=== PATIENT | male | born 1965 | race Caucasian/White ===

== ENCOUNTER 2018-02-22 17:31 | Emergency (ER) | payer MEDICAID, OTHER ==
[~2018-02-22] VITALS: Ht 180.3 cm; Wt 15.9 kg
[2018-02-22 18:34] LABS: BASOPHILS % (AUTO) 0.4 % (0-1); EOSINOPHILS # (AUTO) 0.2 X10'3 (0-0.9); EOSINOPHILS % (AUTO) 2.2 % (0-6); HEMATOCRIT 30.7 % (42.0-52.0); HEMOGLOBIN 9.6 g/dl (14.0-17.9); LYMPHOCYTES # (AUTO) 1.6 X10'3 (1.1-4.8); LYMPHOCYTES % (AUTO) 18.3 % (21-51); MEAN CORPUSCULAR HEMOGLOBIN 25.3 PG (27.0-31.0); MEAN CORPUSCULAR HGB CONC 31.4 % (33.0-36.5); MEAN CORPUSCULAR VOLUME 80.6 FL (78-98); MONOCYTES # (AUTO) 0.6 X10'3 (0-0.9); MONOCYTES % (AUTO) 6.6 % (2-12); NEUTROPHILS # (AUTO) 6.3 X10'3 (1.8-7.7); NEUTROPHILS % (AUTO) 72.5 % (42-75); PLATELET COUNT 392 X10'3 (140-440); RED BLOOD COUNT 3.81 X10'6 (4.70-6.10); WHITE BLOOD COUNT 8.7 X10'3 (4.5-11.0)
[2018-02-22 18:54] LABS: ALANINE AMINOTRANSFERASE 19 U/L (12-78); ALBUMIN 2.2 G/DL (3.4-5.0); ALBUMIN/GLOBULIN RATIO 0.3 (1.1-1.5); ALKALINE PHOSPHATASE 67 IU/L (46-116); ANION GAP 9 (8-16); ASPARTATE AMINO TRANSFERASE 15 U/L (10-37); BILIRUBIN,TOTAL 0.5 MG/DL (0.1-1.0); BLOOD UREA NITROGEN 10 MG/DL (7-18); BUN/CREATININE RATIO 12.2 (5.4-32.0); CALCIUM 8.1 MG/DL (8.5-10.1); CHLORIDE 100 MMOL/L (99-107); CREATININE 0.82 MG/DL (0.60-1.10); GLUCOSE 152 MG/DL (70-104); LIPASE 69 U/L (73-393); POTASSIUM 3.7 MMOL/L (3.5-5.1); SODIUM 139 MMOL/L (135-145); TOTAL CARBON DIOXIDE 30.3 MMOL/L (24-32); TOTAL PROTEIN 8.6 G/DL (6.4-8.2); eGFR > 90 ML/MIN
[2018-02-22 18:57] LABS: PROTHROMBIN TIME 10.7 SECONDS (9.0-12.0)
--- NOTE | 2018-02-22 19:53 | NUR ---
metropolol off of 1 week duloxetine off of 2 weeks furosemide off of 2 weeks glupizide off of 1 month potassium off of 1 month gabapentin off of 1 month atorvastatin off of 3 weeks levothyroxine off of 3 weeks androgel
[2018-02-22] MEDS ORDERED: ATOR20TA PO ×2 (20:01→20:12)
[2018-02-22] MEDS ORDERED: TEST5GEL2 TOP (20:01)
[2018-02-22] MEDS ORDERED: GABA600T2 PO (20:01)
[2018-02-22] MEDS ORDERED: TADA20TA PO (20:01)
[2018-02-22] MEDS ORDERED: FURO-150 PO (20:01)
[2018-02-22] MEDS ORDERED: METO1TAB12 PO (20:01)
[2018-02-22] MEDS ORDERED: EMPA10TA PO (20:01)
[2018-02-22] MEDS ORDERED: GLIP10TA11 PO (20:01)
[2018-02-22] MEDS ORDERED: levothyroxine PO (20:01)
[2018-02-22] MEDS ORDERED: POTA10CA44 PO (20:01)
[2018-02-22] MEDS ORDERED: DULO-31 PO ×2 (20:01→20:12)
[2018-02-22] MEDS ORDERED: BLOO-144 (20:01)
[2018-02-22] MEDS ORDERED: ALBU18HF2 INH (20:01)
[2018-02-22] MEDS ORDERED: LEVO125T PO (20:12)
[2018-02-22] MEDS ORDERED: METO100T14 PO (20:12)
[2018-02-22 20:19] VITALS: BP 136/66
== END 2018-02-22 20:42 | disposition home or self-care (01) ==
LOC: ER 17:32
DX: E11.42 Type 2 diabetes mellitus with diabetic polyneuropathy (principal); Z76.0 Encounter for issue of repeat prescription; R19.7 Diarrhea, unspecified; R06.02 Shortness of breath; I50.9 Heart failure, unspecified; E78.00 Pure hypercholesterolemia, unspecified; Z88.8 Allergy status to other drugs, medicaments and biological substances; Z79.899 Other long term (current) drug therapy
CPT/HCPCS: 36415; 80053; 82948; 83690; 85025; 85610; 99283

== ENCOUNTER 2018-03-23 14:19 | Emergency (ER) | payer MEDICAID, OTHER ==
[~2018-03-23] VITALS: Ht 180.3 cm; Wt 159.1 kg
[~2018-03-23 14:19] MED LIST: ALBU18HF2 INH; ATOR20TA PO; BLOO-144; DULO-31 PO; EMPA10TA PO; FURO-150 PO; GABA600T13 PO; GLIP10TA11 PO; LEVO125T PO; METO100T14 PO; METO1TAB12 PO; POTA10CA44 PO; TADA20TA PO; TEST5GEL2 TOP; levothyroxine PO
[2018-03-23 14:33] VITALS: BP 164/65
[2018-03-23] MEDS ORDERED: GABA600T13 PO (17:41)
[2018-03-23] MEDS ORDERED: FURO-149 PO (17:41)
[2018-03-23] MEDS ORDERED: POTA10CA44 PO (17:41)
[2018-03-23] MEDS ORDERED: EMPA10TA PO (17:41)
[2018-03-23] MEDS ORDERED: GLIP10TA11 PO (17:41)
== END 2018-03-23 17:53 | disposition home or self-care (01) ==
LOC: ER 14:20
DX: L72.8 Other follicular cysts of the skin and subcutaneous tissue (principal); Z76.0 Encounter for issue of repeat prescription; R06.02 Shortness of breath; E11.42 Type 2 diabetes mellitus with diabetic polyneuropathy; E78.00 Pure hypercholesterolemia, unspecified; I50.9 Heart failure, unspecified; Z88.8 Allergy status to other drugs, medicaments and biological substances; Z79.899 Other long term (current) drug therapy; Z60.2 Problems related to living alone
CPT/HCPCS: 99283

== ENCOUNTER 2019-05-10 20:54 | Inpatient (IN) | payer MEDICARE, MEDICAID ==
[~2019-05-10] VITALS: Ht 180.3 cm; Wt 140.0 kg
[~2019-05-10 20:54] MED LIST changes: +FURO-149 PO
[2019-05-10 22:28] LABS: CLARITY,URINE TURBID (Clear); COLOR,URINE YELLOW (Yellow); GLUCOSE, URINE NEGATIVE (Neg); KETONES,URINE TRACE mg/dl (Neg); LEUKOCYTE ESTERASE ,URINE MODERATE (Neg); NITRITES, URINE NEGATIVE (Neg); OCCULT BLOOD,URINE MODERATE (Neg); PROTEIN,URINE 100 mg/dl (Neg)
[2019-05-10 22:35] LABS: UA COLLECTION TYPE CLN CATCH MIDSTREAM
[2019-05-10 22:38] LABS: BACTERIA,URINE 3+ /HPF (Neg); RBC,URINE NONE SEEN /HPF (0-2); SQUAMOUS EPITHELIAL CELL,UR FEW /LPF (FEW); WBC,URINE TNTC /HPF (0-4)
[2019-05-10 22:39] LABS: COARSE GRANULAR CAST 0-3 /LPF (NEGATIVE); FINE GRANULAR CAST 0-3 /LPF (NEGATIVE); TRANSITIONAL EPI CELLS,URINE FEW /HPF
[2019-05-10 22:43] LABS: BASOPHILS % (AUTO) 0.1 % (0-1); EOSINOPHILS % (AUTO) 0.1 % (0-6); HEMATOCRIT 31.4 % (42.0-52.0); HEMOGLOBIN 10.5 g/dl (14.0-17.9); LYMPHOCYTES # (AUTO) 1.2 X10'3 (1.1-4.8); LYMPHOCYTES % (AUTO) 9.1 % (21-51); MEAN CORPUSCULAR HEMOGLOBIN 27.2 PG (27.0-31.0); MEAN CORPUSCULAR HGB CONC 33.5 g/dL (33.0-36.5); MEAN CORPUSCULAR VOLUME 81.1 FL (78-98); MEAN PLATELET VOLUME 7.7 FL (7.4-10.4); MONOCYTES % (AUTO) 7.6 % (2-12); NEUTROPHILS # (AUTO) 10.5 X10'3 (1.8-7.7); NEUTROPHILS % (AUTO) 83.1 % (42-75); PLATELET COUNT 200 X10'3 (140-440); RED BLOOD COUNT 3.87 X10'6 (4.70-6.10); RED CELL DISTRIBUTION WIDTH 16.7 % (11.5-14.5); WHITE BLOOD COUNT 12.6 X10'3 (4.5-11.0)
[2019-05-10] MEDS ORDERED: CefTRIAXone/D5W-Rocephin 1gm 50 ML IV STA (23:00)
[2019-05-10] MEDS ORDERED: normal saline 1000ml 1,000 ML IV ONE (23:10)
[2019-05-10 23:29] LABS: ALANINE AMINOTRANSFERASE 16 U/L (12-78); ALBUMIN/GLOBULIN RATIO 0.4 (1.1-1.5); ALKALINE PHOSPHATASE 90 IU/L (46-116); ANION GAP 6 (8-16); ASPARTATE AMINO TRANSFERASE 19 U/L (10-37); BILIRUBIN,TOTAL 0.7 MG/DL (0.1-1.0); BLOOD UREA NITROGEN 16 MG/DL (7-18); BUN/CREATININE RATIO 13.9 (5.4-32.0); CALCIUM 7.5 MG/DL (8.5-10.1); CHLORIDE 92 MMOL/L (99-107); CREATININE 1.15 MG/DL (0.60-1.10); GLUCOSE 188 MG/DL (70-104); SODIUM 130 MMOL/L (135-145); TOTAL CARBON DIOXIDE 31.9 MMOL/L (24-32); eGFR 67 ML/MIN
[2019-05-10 23:35] LABS: POTASSIUM 2.9 MMOL/L (3.5-5.1)
[2019-05-10 23:36] LABS: PARTIAL THROMBOPLASTIN TIME 37 SECONDS (22-32)
[2019-05-10] MEDS ORDERED: potassium Cl 20 mEq SR tablet PO ONE (23:40)
[2019-05-11] MEDS ORDERED: normal saline 1000ml 1,000 ML IV ONE ×2 (00:15)
[2019-05-11] MEDS ORDERED: LEVO125T8 PO (00:29)
[2019-05-11] MEDS ORDERED: METO-411 PO (00:29)
[2019-05-11] MEDS ORDERED: dextrose 50%-water 50ml dispensing syringe IV PRN ×2 (01:10)
[2019-05-11] MEDS ORDERED: mag hydrox/Alum hydrox/simeth 30ml oral suspension PO PRN (01:10)
[2019-05-11] MEDS ORDERED: magnesium 4gm in 100ml NS 100 ML IV PRN (01:10)
[2019-05-11] MEDS ORDERED: magnesium hydroxide 30ml (MOM) UD suspension PO PRN (01:10)
[2019-05-11] MEDS ORDERED: dextrose ORAL solution 15 GM/59 ML bottle PO PRN ×2 (01:10)
[2019-05-11] MEDS ORDERED: glucagon, human recombinant 1mg kit SUBCUT PRN (01:10)
[2019-05-11] MEDS ORDERED: MESSAGE TO PHARMACY PO ONE (01:10)
[2019-05-11] MEDS ORDERED: potassium Cl 20 mEq SR tablet PO PRN (01:10)
[2019-05-11] MEDS ORDERED: magnesium Cl slow-release 64mg tablet PO PRN (01:10)
[2019-05-11] MEDS ORDERED: acetaminophen 325mg tablet PO PRN (01:10)
[2019-05-11] MEDS ORDERED: ondansetron/PF 4mg/2ml inj IV PRN (01:10)
[2019-05-11] MEDS ORDERED: magnesium 2GM in 50ml NS 50 ML IV PRN (01:10)
[2019-05-11] MEDS ORDERED: insulin Lispro (HumaLOG) vial - multi-dose SQ SCH (01:10)
[2019-05-11] MEDS ORDERED: potassium CL 10mEq/100ml bag 100 ML IV PRN ×2 (01:10)
--- NOTE | 2019-05-11 02:10 | NUR ---
Patient arrived via wheel chair from ER. VSS. Patient in room air, no repiratory distress. No complaints of discomfort at this time.
[2019-05-11] MEDS: potassium Cl 20mEq in NS 1,000 ML IV SCH ×4 (02:40→23:08)
[2019-05-11 02:44] VITALS: BP 124/77
--- NOTE | 2019-05-11 06:33 | NUR ---
Problems reprioritized. Patient report given, questions answered & plan of care reviewed with Glenny TENORIO.
[2019-05-11 07:00] VITALS: BP 112/59
--- NOTE | 2019-05-11 07:10 | NUR ---
Patient in room [facility]. I have received report from Danna TENORIO and had the opportunity to ask questions and assume patient care.
[2019-05-11 07:31] LABS: ALANINE AMINOTRANSFERASE 14 U/L (12-78); ALBUMIN/GLOBULIN RATIO 0.4 (1.1-1.5); ALKALINE PHOSPHATASE 91 IU/L (46-116); ANION GAP 6 (8-16); ASPARTATE AMINO TRANSFERASE 16 U/L (10-37); BILIRUBIN,TOTAL 0.7 MG/DL (0.1-1.0); BLOOD UREA NITROGEN 15 MG/DL (7-18); BUN/CREATININE RATIO 13.5 (5.4-32.0); CALCIUM 7.5 MG/DL (8.5-10.1); CHLORIDE 97 MMOL/L (99-107); CREATININE 1.11 MG/DL (0.60-1.10); GLUCOSE 163 MG/DL (70-104); POTASSIUM 3.2 MMOL/L (3.5-5.1); SODIUM 134 MMOL/L (135-145); TOTAL CARBON DIOXIDE 30.9 MMOL/L (24-32); TOTAL PROTEIN 7.2 G/DL (6.4-8.2); eGFR 69 ML/MIN
[2019-05-11] MEDS: K and/or MAG REPLACEMENT MC SCH ×2 (08:00→20:00)
[2019-05-11] MEDS: gabapentin 300mg capsule PO SCH ×3 (08:04→23:08)
[2019-05-11] MEDS: metoprolol succinate 25mg (24-HOUR) SR. Tablet PO SCH ×2 (08:04→20:08)
[2019-05-11] MEDS: levoTHYROXINE 125mcg tablet PO SCH (08:05)
[2019-05-11] MEDS: potassium Cl 20 mEq SR tablet PO SCH ×2 (08:05→11:58)
[2019-05-11] MEDS: heparin, porcine 5000 units/ml vial SQ SCH ×2 (08:06→20:08)
[2019-05-11 11:00] VITALS: BP 102/52
[2019-05-11] MEDS: potassium Cl 20 mEq SR tablet PO PRN ×2 (12:00→20:09)
[2019-05-11 12:13] LABS: MAGNESIUM 1.5 MG/DL (1.5-2.4)
--- NOTE | 2019-05-11 13:58 | NUR ---
Pt with A1c 7.1. Per H&P pt has had DM for seven years and was previously checking his blood sugars however lost his glucometer. Attempted visit with pt at bedside however pt not available. Written DM education with referral to outpatient CDE course (classes temporarily on hold but pt provided with contact information) and RD contact information left at bedside. Pt currently on CHO controlled diet documented with 100% PO intake. Will continue to follow. Addendum: 05/11/19 at [address] Amended: Links added.
[2019-05-11] MEDS ORDERED: temazepam 15mg capsule PO PRN (15:30)
[2019-05-11] MEDS: acetaminophen 325mg tablet PO PRN (15:47)
[2019-05-11 18:00] VITALS: BP 106/36
--- NOTE | 2019-05-11 18:00 | NUR ---
Patient in room [facility]. I have received report from Glenny TENORIO and had the opportunity to ask questions and assume patient care.
--- NOTE | 2019-05-11 18:29 | NUR ---
Problems reprioritized. Patient report given, questions answered & plan of care reviewed with So TENORIO.
[2019-05-11 20:07] VITALS: BP 161/74
[2019-05-11] MEDS ORDERED: insulin glargine (Lantus) pen - multi-dose SQ SCH (21:00)
[2019-05-11] MEDS ORDERED: duloxetine 30mg CAPSULE.DR PO SCH (21:00)
[2019-05-11] MEDS ORDERED: atorvastatin 20mg tablet PO SCH (21:00)
[2019-05-11] MEDS ORDERED: CefTRIAXone/D5W-Rocephin 1gm 50 ML IV SCH (23:00)
[2019-05-12 00:15] VITALS: BP 132/60
[2019-05-12 05:34] LABS: HEMOGLOBIN 9.9 g/dl (14.0-17.9); MEAN PLATELET VOLUME 7.9 FL (7.4-10.4)
[2019-05-12 05:36] LABS: BASOPHILS % (AUTO) 0.3 % (0-1); EOSINOPHILS # (AUTO) 0.1 X10'3 (0-0.9); HEMATOCRIT 30.1 % (42.0-52.0); LYMPHOCYTES # (AUTO) 1.1 X10'3 (1.1-4.8); LYMPHOCYTES % (AUTO) 12.5 % (21-51); MEAN CORPUSCULAR HEMOGLOBIN 27.2 PG (27.0-31.0); MEAN CORPUSCULAR HGB CONC 32.9 g/dL (33.0-36.5); MEAN CORPUSCULAR VOLUME 82.8 FL (78-98); MONOCYTES # (AUTO) 1.1 X10'3 (0-0.9); MONOCYTES % (AUTO) 12.3 % (2-12); NEUTROPHILS # (AUTO) 6.3 X10'3 (1.8-7.7); NEUTROPHILS % (AUTO) 73.9 % (42-75); PLATELET COUNT 204 X10'3 (140-440); RED BLOOD COUNT 3.63 X10'6 (4.70-6.10); RED CELL DISTRIBUTION WIDTH 17.1 % (11.5-14.5); WHITE BLOOD COUNT 8.6 X10'3 (4.5-11.0)
[2019-05-12 05:42] LABS: ALANINE AMINOTRANSFERASE 22 U/L (12-78); ALBUMIN 1.7 G/DL (3.4-5.0); ALBUMIN/GLOBULIN RATIO 0.3 (1.1-1.5); ALKALINE PHOSPHATASE 83 IU/L (46-116); ANION GAP 5 (8-16); ASPARTATE AMINO TRANSFERASE 29 U/L (10-37); BILIRUBIN,TOTAL 0.4 MG/DL (0.1-1.0); BLOOD UREA NITROGEN 13 MG/DL (7-18); BUN/CREATININE RATIO 12.9 (5.4-32.0); CALCIUM 7.7 MG/DL (8.5-10.1); CHLORIDE 100 MMOL/L (99-107); CREATININE 1.01 MG/DL (0.60-1.10); GLUCOSE 155 MG/DL (70-104); MAGNESIUM 1.8 MG/DL (1.5-2.4); POTASSIUM 3.6 MMOL/L (3.5-5.1); SODIUM 136 MMOL/L (135-145); TOTAL CARBON DIOXIDE 30.9 MMOL/L (24-32); TOTAL PROTEIN 6.8 G/DL (6.4-8.2); eGFR 77 ML/MIN
--- NOTE | 2019-05-12 06:22 | NUR ---
Problems reprioritized. Patient report given, questions answered & plan of care reviewed with Jigna TENORIO.
--- NOTE | 2019-05-12 06:50 | NUR ---
Patient in room [facility]. I have received report from So TENORIO and had the opportunity to ask questions and assume patient care.
[2019-05-12 07:19] LABS: ANISOCYTOSIS 1+; PLATELET ESTIMATE NORMAL; POLYCHROMASIA 1+; TOTAL CELLS COUNTED 100; TOXIC GRANULATION 1+
[2019-05-12 07:53] VITALS: BP 149/84
[2019-05-12] MEDS: gabapentin 300mg capsule PO SCH ×2 (08:00→15:36)
[2019-05-12] MEDS: potassium Cl 20 mEq SR tablet PO SCH (08:00)
[2019-05-12] MEDS: metoprolol succinate 25mg (24-HOUR) SR. Tablet PO SCH (08:00)
[2019-05-12] MEDS: K and/or MAG REPLACEMENT MC SCH (08:00)
[2019-05-12] MEDS: levoTHYROXINE 125mcg tablet PO SCH (08:00)
[2019-05-12] MEDS: heparin, porcine 5000 units/ml vial SQ SCH (08:01)
[2019-05-12] MEDS: potassium Cl 20mEq in NS 1,000 ML IV SCH (09:31)
[2019-05-12] MEDS ORDERED: levoFLOXACIN 750MG TABLET PO SCH (11:00)
[2019-05-12 12:00] VITALS: BP 142/76
[2019-05-12] MEDS ORDERED: LEVO750T46 PO (12:34)
--- NOTE | 2019-05-12 13:09 | NUR ---
Message sent to PT: (3) MESSAGE: Re: Rm 350B; pt d/c'd with a walker per Dr Seaman but needs to be seen by PT for eval prior to d/c. When will you be able to see pt? Thank you!
--- NOTE | 2019-05-12 14:54 | NUR ---
approx [phone] junior legal secretary received call from PT, stating eval is complete, but need note needs to be entered. Received phone call response to page from Shawna PETTY approx [phone], she will keep checking to see if PT entered eval.
--- NOTE | 2019-05-12 15:26 | NUR ---
Rene Matos PT phoned and said they have entered the eval note for Rm 350B. Thank you! Jigna Addendum: 05/12/19 at 1629 by Alfreda Waldron RN Mssg sent to Shawna PETTY
[2019-05-12] MEDS: acetaminophen 325mg tablet PO PRN (15:38)
--- NOTE | 2019-05-12 15:59 | NUR ---
DM Consult: Already addressed by prior RD note; see below. Pt with A1c 7.1. Per H&P pt has had DM for seven years and was previously checking his blood sugars however lost his glucometer. Attempted visit with pt at bedside however pt not available. Written DM education with referral to outpatient CDE course (classes temporarily on hold but pt provided with contact information) and RD contact information left at bedside. Pt currently on CHO controlled diet documented with 100% PO intake. Will continue to follow. Addendum: 05/12/19 at [address] Amended: Links added.
--- NOTE | 2019-05-12 16:00 | NUR ---
Pt stable and appropriate for d/c. Tele d/c'd. PIV d/c'd cannula intact. Education given, reviewed d/c instructions and meds. D/c med e-scripted to [facility] pharmacy Magda Berger. Pt instructed to followup with PCP in 2 wks and obtain lab work in 1 week, pt to call PCP to schedule these appts. Walker provided by JOVANNY with instructions on use given. Walker sent home with pt, as well as all personal belongings. Pt instructed Home Health setup by CM, and to call PCP if no contact in 48 hrs. Pt down to lobby via w/c accompanied by PCT and sister. Home in sister's personal vehicle.
--- NOTE | 2019-05-14 15:27 | NUR ---
Case management DC follow up: LM/VM - post DC status, questions or concerns,
== END 2019-05-12 16:10 | disposition home health service (06) | DRG 872 ==
LOC: ER 20:56 → ED HOLD 05-11 01:08 → SUR 3N 05-11 01:55
PROVIDERS: ADMIT Internal Medicine; ATTEND Family Medicine
DX: A41.9 Sepsis, unspecified organism (principal); N39.0 Urinary tract infection, site not specified; G47.33 Obstructive sleep apnea (adult) (pediatric); E78.5 Hyperlipidemia, unspecified; E11.621 Type 2 diabetes mellitus with foot ulcer; E87.6 Hypokalemia; E03.9 Hypothyroidism, unspecified
CPT/HCPCS: 36415; 71045; 80053; 81001; 82948; 83036; 83605; 83735; 84145; 85025; 85610; 85730; 87040; 87077; 87081; 87088; 87186; 87502; 87503; 93005; 97110; 97116; 97162; G0378; J0696; J1644; J1815; J3480; J7030

== ENCOUNTER 2020-01-04 14:23 | Emergency (ER) | payer MEDICARE, MEDICAID ==
[~2020-01-04] VITALS: Ht 177.8 cm; Wt 158.0 kg
[~2020-01-04 14:23] MED LIST changes: -ALBU18HF2 INH; -EMPA10TA PO; -FURO-149 PO; -GLIP10TA11 PO; -LEVO125T PO; +LEVO125T8 PO; +LEVO750T46 PO; +METO-411 PO; -METO100T14 PO; -METO1TAB12 PO; -TADA20TA PO; -levothyroxine PO
[2020-01-04 14:41] VITALS: BP 100/61
--- NOTE | 2020-01-04 17:20 | NUR ---
Pt not in room. Primary RN Nidia and KEEGAN Ordoñez notified.
== END 2020-01-04 17:20 | disposition left against medical advice (07) ==
LOC: ER 14:23
DX: N48.89 Other specified disorders of penis (principal); Z53.21 Procedure and treatment not carried out due to patient leaving prior to being seen by health care provider

== ENCOUNTER 2020-01-07 19:06 | Emergency (ER) | payer MEDICARE, MEDICAID ==
[~2020-01-07] VITALS: Ht 177.8 cm; Wt 166.0 kg
[2020-01-07 19:19] VITALS: BP 117/94
[2020-01-07] MEDS ORDERED: CEPH250T PO (20:51)
[2020-01-07 21:23] LABS: CLARITY,URINE CLEAR (Clear); COLOR,URINE YELLOW (Yellow); GLUCOSE, URINE >=1000 mg/dl (Neg); KETONES,URINE NEGATIVE (Neg); LEUKOCYTE ESTERASE ,URINE NEGATIVE (Neg); NITRITES, URINE NEGATIVE (Neg); OCCULT BLOOD,URINE TRACE-INTACT (Neg); PH,URINE 5.5 (4.8-8.0); PROTEIN,URINE NEGATIVE (Neg)
[2020-01-07 21:31] LABS: BACTERIA,URINE NONE SEEN /HPF (Neg); RBC,URINE 0-2 /HPF (0-2); UA COLLECTION TYPE CLN CATCH MIDSTREAM; WBC,URINE NONE SEEN /HPF (0-4)
[2020-01-07 21:32] LABS: SQUAMOUS EPITHELIAL CELL,UR FEW /LPF (FEW)
== END 2020-01-07 21:07 | disposition home or self-care (01) ==
LOC: ER 19:06
DX: N48.29 Other inflammatory disorders of penis (principal); N48.89 Other specified disorders of penis; E11.42 Type 2 diabetes mellitus with diabetic polyneuropathy; I50.9 Heart failure, unspecified; E78.00 Pure hypercholesterolemia, unspecified; Z60.2 Problems related to living alone; Z88.8 Allergy status to other drugs, medicaments and biological substances; Z79.2 Long term (current) use of antibiotics; Z79.899 Other long term (current) drug therapy
CPT/HCPCS: 81001; 99283

== ENCOUNTER 2020-10-08 12:23 | Emergency (ER) | payer BC, MEDICAID ==
[~2020-10-08] VITALS: Ht 177.8 cm; Wt 170.0 kg
[2020-10-08] MEDS ORDERED: normal saline 1000ml 1,000 ML IV ONE (14:50)
[2020-10-08] MEDS ORDERED: vancomycin/NS 1 GM ADD-VANTAGE 250 ML X 1 DOSE IV ONE (15:00)
[2020-10-08 15:14] LABS: BASOPHILS # (AUTO) 0.1 X10'3 (0-0.2); BASOPHILS % (AUTO) 0.6 % (0-1); EOSINOPHILS # (AUTO) 0.4 X10'3 (0-0.9); EOSINOPHILS % (AUTO) 4.1 % (0-6); HEMATOCRIT 33.9 % (42.0-52.0); HEMOGLOBIN 10.8 g/dl (14.0-17.9); LYMPHOCYTES % (AUTO) 19.7 % (21-51); MEAN CORPUSCULAR HEMOGLOBIN 24.9 PG (27.0-31.0); MEAN CORPUSCULAR HGB CONC 31.9 g/dL (33.0-36.5); MEAN CORPUSCULAR VOLUME 78.1 FL (78-98); MONOCYTES # (AUTO) 0.6 X10'3 (0-0.9); MONOCYTES % (AUTO) 5.8 % (2-12); NEUTROPHILS % (AUTO) 69.8 % (42-75); PLATELET COUNT 342 X10'3 (140-440); RED BLOOD COUNT 4.34 X10'6 (4.70-6.10); RED CELL DISTRIBUTION WIDTH 17.6 % (11.5-14.5); WHITE BLOOD COUNT 10.1 X10'3 (4.5-11.0)
[2020-10-08 15:30] LABS: ALANINE AMINOTRANSFERASE 11 U/L (12-78); ALBUMIN 2.6 G/DL (3.4-5.0); ALBUMIN/GLOBULIN RATIO 0.5 (1.1-1.5); ALKALINE PHOSPHATASE 98 IU/L (46-116); ANION GAP 10 (8-16); ASPARTATE AMINO TRANSFERASE 12 U/L (10-37); BILIRUBIN,TOTAL 0.3 MG/DL (0.1-1.0); BLOOD UREA NITROGEN 20 MG/DL (7-18); BUN/CREATININE RATIO 25.6 (5.4-32.0); CALCIUM 8.3 MG/DL (8.5-10.1); CHLORIDE 104 MMOL/L (99-107); CREATININE 0.78 MG/DL (0.60-1.10); GLUCOSE 139 MG/DL (70-104); SODIUM 141 MMOL/L (135-145); TOTAL CARBON DIOXIDE 26.9 MMOL/L (24-32); TOTAL PROTEIN 8.1 G/DL (6.4-8.2); eGFR > 90 ML/MIN
--- NOTE | 2020-10-08 15:35 | NUR ---
Smiley Bui (sister) [phone]
[2020-10-08] MEDS ORDERED: SULF1TAB49 PO (16:51)
[2020-10-08] MEDS ORDERED: CEPH-585 PO (16:51)
[2020-10-08 17:36] VITALS: BP 103/43
[2020-10-08] MEDS ORDERED: piperacillin/tazo 4.5gm/100ml 100 ML IV SCH (20:00)
== END 2020-10-08 18:01 | disposition home or self-care (01) ==
LOC: ER 12:23
DX: L03.115 Cellulitis of right lower limb (principal); E11.42 Type 2 diabetes mellitus with diabetic polyneuropathy; I50.9 Heart failure, unspecified; E78.00 Pure hypercholesterolemia, unspecified; Z60.2 Problems related to living alone; Z88.8 Allergy status to other drugs, medicaments and biological substances; Z79.2 Long term (current) use of antibiotics; Z79.899 Other long term (current) drug therapy
CPT/HCPCS: 36415; 73620; 80053; 85025; 96365; 99284; J3370; J7030